=== PATIENT | male | born 1955 | race Caucasian/White ===

== ENCOUNTER 2017-01-12 20:22 | Emergency (ER) | payer MEDICARE ==
[2017-01-12] MEDS ORDERED: Lidocaine 5% Patch TD STA (20:40)
[2017-01-12] MEDS ORDERED: Lidocaine 5% Patch TD ONE (20:54)
--- NOTE | 2017-01-12 21:03 | C.PDOC ---
History Of Present Illness 61 y/o male hx herniated discs presents to the ED with complaints of left lower back back pain radiating down left leg which onset after picking up object. Pt took Voltaren without relief. Denies weakness, numbness, urinary or bowel incontinence or any other complaints. Time Seen by Provider: 01/12/17 20:36 Chief Complaint (Nursing): Back Pain History Per: Patient History/Exam Limitations: no limitations Onset/Duration Of Symptoms: Days Current Symptoms Are (Timing): Still Present Quality Of Discomfort: "Pain" Severity: Moderate Previous Symptoms: Back Pain Associated Symptoms: None Recent travel outside of the [place]: No Past Medical History Reviewed: Historical Data, Nursing Documentation, Vital Signs Vital Signs: Last Vital Signs Temp 98.2 F 01/12/17 22:49 Pulse 83 01/12/17 22:49 Resp 20 01/12/17 22:49 BP 171/101 H 01/12/17 22:49 Pulse Ox 96 01/12/17 22:49 - Medical History PMH: Arthritis, Asthma, COPD, Depression, Diabetes, HTN, Hypercholesterolemia Denies: Chronic Kidney Disease Family History: States: Unknown Family Hx - Social History Hx Tobacco Use: No Hx Alcohol Use: No Hx Substance Use: No - Immunization History Hx Tetanus Toxoid Vaccination: No Hx Influenza Vaccination: No Hx Pneumococcal Vaccination: No Review Of Systems Genitourinary: Negative for: Incontinence Musculoskeletal: Positive for: Back Pain Neurological: Negative for: Weakness, Numbness Physical Exam - Physical Exam Appears: Non-toxic, In Acute Distress (in moderate pain) Skin: Warm, Dry, No Rash Head: Atraumatic, Normacephalic Nose: Normal Neck: Normal, Normal ROM, Supple Chest: Symmetrical Cardiovascular: Rhythm Regular, No Murmur Respiratory: Normal Breath Sounds, No Rales, No Rhonchi, No Wheezing Gastrointestinal/Abdominal: Normal Exam, Soft, No Tenderness Back: No Vertebral Tenderness, Paraspinal Tenderness (lumbar, L>R), No Straight Leg Raising (negative) Extremity: Normal ROM Extremity: Bilateral: Atraumatic Neurological/Psych: Oriented x3, Normal Speech, Normal Motor, Normal Sensation ED Course And Treatment O2 Sat by Pulse Oximetry: 97 (room air) Pulse Ox Interpretation: Normal Medical Decision Making Medical Decision Making: Impression: low back pain, no acute trauma. xray not indicated at this time. Plan: valium, toradol, lidoderm patch Re-eval: Patient continued to have pain, percocet PO was ordered. On second re- eval patient reports pain is improving. He is no ambulatory with minimal discomfort Disposition Counseled Patient/Family Regarding: Need For Followup, Rx Given - Disposition Referrals: Shaik Razo MD [Staff Provider] - Disposition: HOME/ ROUTINE Disposition Time: 22:43 Condition: STABLE Additional Instructions: Vaya a andujar mdico o la clnica en 2-5 estrada sin falta, para mas evaluacin. [place] los medicamentos eduardo indicado. Volver a la [place] de emergencia en cualquier momento si los sntomas persisten o empeoran. Prescriptions: Cyclobenzaprine [Cyclobenzaprine HCl] 10 mg PO TID #21 tab Ibuprofen [Motrin] 600 mg PO Q8 #30 tab Instructions: Lumbar Radiculopathy (ED) Print Language: MAORI - POA Present On Arrival: None - Clinical Impression Clinical Impression: Low back pain, Sciatica - PA / PRODUCTION ANALYST / Resident Statement MD/DO has reviewed & agrees with the documentation as recorded. - Scribe Statement The provider has reviewed the documentation as recorded by the Cooper Ruiz All medical record entries made by the Scribe were at my direction and personally dictated by me. I have reviewed the chart and agree that the record accurately reflects my personal performance of the history, physical exam, medical decision making, and the department course for this patient. I have also personally directed, reviewed, and agree with the discharge instructions and disposition.
[2017-01-12] MEDS ORDERED: Oxycodone/Acetaminophen 5/325 mg Tab PO STA (21:52)
[2017-01-12] MEDS ORDERED: Oxycodone/Acetaminophen 5/325 mg Tab ONE (22:02)
[2017-01-12 22:49] VITALS: BP 171/101; PULSE 83; RESP 20; TEMP 98.2
[2017-01-13 01:23] VITALS: O2SAT 97
== END 2017-01-12 23:09 | disposition home or self-care (01) ==
LOC: C.ER 20:22
DX: M54.40 Lumbago with sciatica, unspecified side (principal)
CPT/HCPCS: 96372; 99283; J1885